=== PATIENT | female | born 1960 | race Caucasian/White ===

== ENCOUNTER 2023-11-21 09:18 | Outpatient (CLI) | payer BC | END 2023-11-21 09:19 | disposition home or self-care (01) | LOC: SCSMRI 09:18 | PROVIDERS: ATTEND Otolaryngology Pediatric Otolaryngology | DX: H91.21 Sudden idiopathic hearing loss, right ear (principal); I67.82 Cerebral ischemia; R60.9 Edema, unspecified | CPT/HCPCS: 70553; 82565 ==